=== PATIENT | male | born 1960 | race Hispanic/Latino ===

== ENCOUNTER 2024-09-08 06:11 | Day surgery (SDC) | payer MEDICARE ==
[2024-09-03 14:16] VITALS: BP 148/85; PULSE 56; RESP 18; TEMP 98.1
--- NOTE | 2024-09-04 08:55 | EKG ---
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
[2024-09-08] VITALS (16 sets, daily range): BP systolic 109–134; BP diastolic 61–78; PULSE 50–62; RESP 13–17; TEMP 96.8–97.9
[~2024-09-08] VITALS: Ht 172.7 cm; Wt 87.8 kg
[~2024-09-08 06:11] MED LIST: ATEN1TAB3 PO; FINA5TAB41 PO; OMEP40CA21 PO; ROSU10TA72 PO; TAMS-55 PO
[2024-09-08] MEDS ORDERED: acetaMINOPHEN 100 ML ONE (06:40)
[2024-09-08] MEDS ORDERED: FAMOTIDINE 20MG VIAL IV ONE (06:40)
[2024-09-08] MEDS ORDERED: rocuRONium bROMide 10MG/1ML 5ML VL ONE (06:46)
[2024-09-08] MEDS ORDERED: LIDOCAINE PF 100MG/5ML (2%) SYRINGE 5ML ONE (06:46)
[2024-09-08] MEDS ORDERED: proPOFol 10 MG/ML 20ML VIAL IV ONE (06:46)
[2024-09-08] MEDS ORDERED: FENTanyl CITRate PF 50 MCG/1 ML 2ML VIAL ONE (06:47)
[2024-09-08] MEDS ORDERED: CETI10TA57 PO (07:25)
[2024-09-08] MEDS: ceFAZolin SODIUM 2 GM VIAL ONE (07:25)
[2024-09-08] MEDS: LACTATED RINGERS 1000ML 1,000 ML IV ONE (07:25)
[2024-09-08] MEDS ORDERED: LIDOCAINE HCL 1% 20 ML VIAL ONE (07:28)
[2024-09-08] MEDS ORDERED: LIDOCAINE HCL 1% 10 ML VIAL ONE (07:32)
[2024-09-08] MEDS: LIDOCAINE HCL 1% 10 ML VIAL ONE (07:51)
[2024-09-08] MEDS: BUPIvacaine/PF 0.25% 30ML VIAL IJ ONE (07:51)
[2024-09-08] MEDS ORDERED: dexaMETHasone SOD PHOSPHATE 10MG/ML 1ML VIAL ONE (07:53)
[2024-09-08] MEDS ORDERED: ondanSETRON 4MG INJ ONE (07:53)
[2024-09-08] MEDS ORDERED: LIDOCAINE HCL 400MG/20ML VIAL ONE (07:57)
[2024-09-08] MEDS ORDERED: GLYCOPYRROLATE 0.2 MG/ML 5 ML VIAL ONE (08:08)
[2024-09-08] MEDS: morPHINE 2 MG SYG ONE (08:54)
--- NOTE | 2024-09-08 09:47 | NUR ---
Full and complete discharge instructions given to Patient and Family both verbally and in writing. Explained Surgical procedure precautions and follow up. Anal incision site clean dry and intact. No evidence of bleeding, bruising or hematoma. All questions answered. PIV removed with catheter tip intact. at bedside appearing supportive. W/C to POV with to home
--- NOTE | 2024-09-21 12:51 | OP ---
Operative Note: DATE OF PROCEDURE: 09/08/24 SURGEON: JORDAN LYNCH MD [employer] STORE ASSISTANT: None ANESTHESIA: General with LMA ANESTHESIOLOGIST/RECORDING ENGINEER: RECORDING ENGINEER PREOPERATIVE DIAGNOSIS: Anal Papillae POSTOPERATIVE DIAGNOSIS: Anal Papillae PROCEDURE: Transanal Excision of anal papillae ESTIMATED BLOOD LOSS: Minimal INDICATIONS: Mr. Lozano is a very pleasant 64 year old male who presented with an anal papillae with colonoscopy biopsies showing adenomatous tissue thus an excision was recommended. Complications, alternatives, risk and benefits were discussed and include but not limited to infection, bleeding, injury to surrounding structures such as blood vessels nerves and other organs, recurrence of disease and the need for additional procedures. The patient voiced complete understanding and wished to proceed. All of his questions were answered to his satisfaction. DESCRIPTION OF PROCEDURE: After informed consent was obtained, the patient was taken to the operating room and laid in the supine position. Once general anesthesia with an LMA was obtained, the patient was carefully placed into the lithotomy position. Next the perianal area was prepped and draped in the usual sterile fashion. A time out was performed to confirm the correct patient and procedure. Next a bilateral pudendal block was performed followed by placement of a fansler anoscope, the anal canal was inspected. There was a moderate sized anal papillae in the posterior midline. This was grasped and excised en bloc in a full thickness manner. The area was lying over engorged hemorrhoidal tissue and for added hemostasis a 2-0 vicryl stitch was placed for hemostasis. There was a smaller anal papillae which was also excised. The specimens were sent to pathology. Hemostasis was confirmed. Gelfoam and lidocaine placed into the anal canal. A gauze dressing was applied. The patient tolerated the procedure well and was taken to the recovery in stable condition. I discussed the above with the patients family at completion of the case. Complications: none Specimens: Anal Papillae Counts: reported as correct x2 by nursing staff JORDAN LYNCH MD Sep 21, 2024 12:51
== END 2024-09-08 09:40 | disposition home or self-care (01) ==
LOC: DAH 06:11
PROVIDERS: ATTEND Surgery
DX: K62.0 Anal polyp (principal); K62.89 Other specified diseases of anus and rectum; L29.0 Pruritus ani; K64.4 Residual hemorrhoidal skin tags; K64.1 Second degree hemorrhoids; I10 Essential (primary) hypertension; Z79.899 Other long term (current) drug therapy; Z98.890 Other specified postprocedural states
CPT/HCPCS: 93005; 46922; 88305; A4663; A4649; A4606; J7120; J3490 ×6; J3010; J1100; J2270; J0665; J2003; J2704; J2405; J0690; A4215; A4213; A4222; A4221; A4216; A4223 ×2